=== PATIENT | male | born 1945 | race Asian ===

== ENCOUNTER → 2023-10-01 | Outpatient (CLI) | payer OTHER | END | disposition home or self-care (01) | LOC: RADMN 15:06 | PROVIDERS: ATTEND Chiropractor | DX: M13.851 Other specified arthritis, right hip (principal); M13.852 Other specified arthritis, left hip; M13.862 Other specified arthritis, left knee; M76.892 Other specified enthesopathies of left lower limb, excluding foot; M47.817 Spondylosis without myelopathy or radiculopathy, lumbosacral region | CPT/HCPCS: 72170; 73562-TC ==